=== PATIENT | male | born 1975 | race American Indian/Alaskan Native ===

== ENCOUNTER 2017-12-19 13:59 | Emergency (ER) | payer MEDICAID ==
[2017-12-19 13:59] VITALS: BMI 33.9
--- NOTE | 2017-12-19 16:17 | RAD ---
HISTORY: Pain COMPARISON: No prior. TECHNIQUE: Chest PA and lateral FINDINGS: LINES AND TUBES: None. LUNG AND PLEURA: The lungs are well inflated and clear. No pleural effusion or pneumothorax. HEART AND MEDIASTINUM: The heart is not enlarged. The hilar and mediastinal contours are within normal limits. SKELETAL STRUCTURES: The bony structures are within normal limits for the patient's age. VISUALIZED UPPER ABDOMEN: Normal. OTHER FINDINGS: None. IMPRESSION: No active pulmonary disease.
--- NOTE | 2017-12-19 16:37 | RAD ---
Date of service: 12/19/2017 PROCEDURE: Radiographs of the Lumbar Spine. HISTORY: s/p fall - r/o fx COMPARISON: None available. FINDINGS: BONES: Mild curvature of the lumbar spine convex to the left, may be positional. Alignment appears otherwise satisfactory. No listhesis. No acute displaced fracture identified. Mild degenerative changes, small anterior osteophyte formation. DISC SPACES: Unremarkable. OTHER FINDINGS: None. IMPRESSION: No acute displaced fracture or subluxation identified.
[2017-12-19 17:02] VITALS: BP 158/94; PULSE 64; RESP 18; TEMP 98; O2SAT 97
--- NOTE | 2017-12-19 17:17 | C.PDOC ---
History Of Present Illness 42 year old male with a Hx of diabetes presents to the ER with a complaint of lower back pain s/l mechanical fall at 0600. Patient states he tried grabbing a pole and fell on his left left while bracing with his left hand. He notes the pain is nonradiating and describes it as a squeezing pain. Denies saddle anesthesia or bladder/bowel incontinence. He has not tried any medication or ice for the pain. Patient also complains of a productive cough with green sputum for the past month. He notes that he was around many sick contacts a month ago. Denies fever or chills. Chief Complaint (Nursing): Back Pain History Per: Patient History/Exam Limitations: no limitations Onset/Duration Of Symptoms: Hrs Current Symptoms Are (Timing): Still Present Quality Of Discomfort: Other (Squeezing) Previous Symptoms: None Associated Symptoms: None Recent travel outside of the [place]: No Past Medical History Reviewed: Historical Data, Nursing Documentation, Vital Signs Vital Signs: Last Vital Signs Temp 98 F 12/19/17 17:02 Pulse 64 12/19/17 17:02 Resp 18 12/19/17 17:02 BP 158/94 H 12/19/17 17:02 Pulse Ox 97 12/19/17 17:02 - Medical History PMH: Asthma, Diabetes (ON NO MEDS) Denies: Anxiety, Bipolar Disorder, Depression, Personality Disorder, Post Traumatic Stress Disorder, Chronic Kidney Disease, Schizophrenia - [facility] Procedures DRAINAGE OF NECK SKIN, EXTERNAL APPROACH (08/14/15) NEBULIZER THERAPY (10/19/14) OTHER SKIN & SUBQ I D (06/14/13) Family History: States: Unknown Family Hx - Social History Hx Tobacco Use: No Hx Alcohol Use: Yes Hx Substance Use: No - Immunization History Hx Tetanus Toxoid Vaccination: Yes Hx Influenza Vaccination: Yes Hx Pneumococcal Vaccination: No Review Of Systems Constitutional: Negative for: Fever, Chills Respiratory: Positive for: Cough, Sputum Genitourinary: Negative for: Dysuria, Incontinence, Hematuria Musculoskeletal: Positive for: Back Pain Neurological: Negative for: Weakness, Numbness Physical Exam - Physical Exam Appears: Non-toxic Skin: Normal Color, Warm, Dry Head: Atraumatic, Normacephalic Eye(s): bilateral: Normal Inspection Ear(s): Bilateral: Normal Nose: Normal Oral Mucosa: Moist Throat: Normal, No Erythema, No Exudate Neck: Normal, Supple Chest: Symmetrical, No Tenderness Cardiovascular: Rhythm Regular Respiratory: Normal Breath Sounds, No Rales, No Rhonchi, No Wheezing Gastrointestinal/Abdominal: Soft, No Tenderness Back: No Vertebral Tenderness, Paraspinal Tenderness (Lumbar), Other (No brusing, tender to palpation, full passive motion of lower back, limited active motion of lower back in all directions.) Extremity: Normal ROM (x4) Neurological/Psych: Oriented x3, Normal Speech, Normal Motor, Normal Sensation Gait: Steady ED Course And Treatment O2 Sat by Pulse Oximetry: 97 (Room air) Pulse Ox Interpretation: Normal Progress Note: LS spine x-ray and CXR ordered. Disposition - Disposition Referrals: [facility] [address] [Outside] [facility] [Outside] Disposition: HOME/ ROUTINE Disposition Time: 16:55 Condition: GOOD Additional Instructions: MAURICE CALZADA, thank you for letting us take care of you today. Your provider was Justus Michaels DO and you were treated for FALL/BACK PAIN. The emergency medical care you received today was directed at your acute symptoms. If you were prescribed any medication, please fill it and take as directed. It may take several days for your symptoms to resolve. Return to the Emergency Department if your symptoms worsen, do not improve, or if you have any other problems. Please contact your doctor or call one of the physicians/clinics you have been referred to that are listed on the Patient Visit Information form that is included in your discharge packet. Bring any paperwork you were given at discharge with you along with any medications you are taking to your follow up visit. Our treatment cannot replace ongoing medical care by a primary care provider outside of the emergency department. Thank you for allowing the [facility] team to be part of your care today. Follow up with your primary care doctor or our clinic in 3-5 days for re- evaluation and further management. Prescriptions: Cyclobenzaprine [Cyclobenzaprine HCl] 10 mg PO Q8 PRN #20 tab PRN Reason: Muscle Spasm Ibuprofen [Motrin] 600 mg PO Q6 PRN #20 tab PRN Reason: Pain, Moderate (4-7) Instructions: Low Back Pain (DC) Forms: [employer]buy (Spanish) - Clinical Impression Clinical Impression: Low back pain - Scribe Statement The provider has reviewed the documentation as recorded by the Scribe Levi Andre All medical record entries made by the Ken were at my direction and personally dictated by me. I have reviewed the chart and agree that the record accurately reflects my personal performance of the history, physical exam, medical decision making, and the department course for this patient. I have also personally directed, reviewed, and agree with the discharge instructions and disposition.
== END 2017-12-19 17:09 | disposition home or self-care (01) ==
LOC: C.ER 13:59
DX: M54.5 Low back pain (principal)